=== PATIENT | female | born 1975 | race Caucasian/White ===

== ENCOUNTER 2021-08-13 09:12 | Outpatient (CLI) | payer OTHER | END 2021-08-13 10:12 | disposition home or self-care (01) | LOC: PRENATAL 09:12 | PROVIDERS: ATTEND Obstetrics & Gynecology Maternal & Fetal Medicine | DX: O99.891 Other specified diseases and conditions complicating pregnancy (principal); O09.511 Supervision of elderly primigravida, first trimester; O36.80X1 Pregnancy with inconclusive fetal viability, fetus 1; Z36.89 Encounter for other specified antenatal screening; Z3A.11 11 weeks gestation of pregnancy ==

== ENCOUNTER → 2021-08-23 | Day surgery (SDC) | payer OTHER ==
[~2021-08-23] MED LIST: SYNTHROID137 MCG PO
== END | disposition home or self-care (01) ==
LOC: CIR.AMB 11:12
PROVIDERS: ATTEND Obstetrics & Gynecology
DX: O02.1 Missed abortion (principal); Z20.822 Contact with and (suspected) exposure to COVID-19

== ENCOUNTER → 2022-04-01 | Outpatient (CLI) | payer OTHER | END | disposition home or self-care (01) | LOC: SONOGRAMA 11:00 | PROVIDERS: ATTEND Orthopaedic Surgery | DX: M25.512 Pain in left shoulder (principal) ==

== ENCOUNTER → 2023-03-30 | Outpatient (CLI) | payer OTHER | END | disposition home or self-care (01) | LOC: TOM 10:04 | PROVIDERS: ATTEND Specialist | DX: R22.1 Localized swelling, mass and lump, neck (principal) ==